=== PATIENT | male | born 1955 | race Caucasian/White ===

== ENCOUNTER 2023-01-16 09:38 | Day surgery (SDC) | payer MEDICARE, OTHER ==
[~2023-01-16 09:38] MED LIST: Acetaminophen 325 MG Tab PO SCH; Dexamethasone 4 MG/ML 5 ML MDV ONE; Dexmedetomidine 200 MCG/2 ML SDV ONE; Lidocaine 1% 5 ML VIAL ONE; Midazolam 1 MG/ML 2 ML SDV ONE; Ondansetron 4 MG/2 ML SDV ONE; Pantoprazole 40 MG Tab.CR PO SCH; Propofol 200 MG/20 ML SDV ONE; Sodium Chloride 0.9% 10 ML Syringe FLUSH PRN; Sodium Chloride 0.9% 10 ML Syringe FLUSH SCH; ceFAZolin 2 GM Vial ONE
[2023-01-16] MEDS ORDERED: fentaNYL 250 MCG/5 ML SDV ONE (09:54)
[2023-01-16] MEDS ORDERED: Ondansetron 4 MG/2 ML SDV ONE (09:55)
[2023-01-16] MEDS: Lactated Ringers 1,000 ML IV SCH ×2 (09:55→11:47)
[2023-01-16] MEDS ORDERED: Succinylcholine 200 MG/10 ML MDV ONE (09:55)
[2023-01-16] MEDS ORDERED: Lidocaine 1% 6 ML ONE (10:01)
[2023-01-16] MEDS ORDERED: EPINEPHrine 1 MG/ML SDV ONE (10:39)
[2023-01-16] MEDS ORDERED: Bupivacaine 0.5% 30 ML SDV ONE (10:40)
[2023-01-16] MEDS ORDERED: Lidocaine 1% 30 ML SDV ONE (10:40)
[2023-01-16] MEDS ORDERED: Ketorolac 30 MG/ML SDV ONE (12:15)
[2023-01-16] MEDS ORDERED: ePHEDrine 50 MG/ML SDV ONE (12:26)
[2023-01-16] MEDS ORDERED: fentaNYL 100 MCG/2 ML SDV ONE (12:44)
[2023-01-16] MEDS ORDERED: HYDROmorphone 0.5 MG/0.5 ML Syringe IVPUSH PRN (12:44)
[2023-01-16] MEDS ORDERED: fentaNYL 100 MCG/2 ML SDV IVPUSH PRN (12:44)
[2023-01-16] MEDS ORDERED: Neostigmine Methylsulfate 10 MG/10 ML MDV ONE (12:57)
[2023-01-16] MEDS ORDERED: Acetaminophen/oxyCODONE 325-5 MG Tab PO PRN (15:02)
== END 2023-01-16 17:10 | disposition home or self-care (01) ==
LOC: JD.SDS 09:38
PROVIDERS: ATTEND Surgery
DX: K40.20 Bilateral inguinal hernia, without obstruction or gangrene, not specified as recurrent (principal); E11.9 Type 2 diabetes mellitus without complications; I10 Essential (primary) hypertension; K83.1 Obstruction of bile duct; G47.33 Obstructive sleep apnea (adult) (pediatric); Z79.4 Long term (current) use of insulin; Z79.82 Long term (current) use of aspirin; Z79.84 Long term (current) use of oral hypoglycemic drugs; Z79.899 Other long term (current) drug therapy
CPT/HCPCS: 49650; A9270; C1727; C1781; J0171; J0330; J0690; J1100; J1885; J2250; J2405; J2704; J2710; J3010; J3490; J7120

== ENCOUNTER 2023-05-15 07:12 | Day surgery (SDC) | payer MEDICARE, OTHER ==
[2023-05-15] MEDS: Lactated Ringers 1,000 ML IV SCH (07:45)
[2023-05-15] MEDS ORDERED: Lidocaine 2% 5 ML SDV ONE (08:04)
[2023-05-15] MEDS ORDERED: Propofol 200 MG/20 ML SDV ONE ×2 (08:04→09:05)
[2023-05-15] MEDS: Bupivacaine 0.5% 10 ML SDV ONE (09:40)
== END 2023-05-15 10:55 | disposition home or self-care (01) ==
LOC: JD.SDS 07:12
PROVIDERS: ATTEND Surgery
DX: D12.3 Benign neoplasm of transverse colon (principal); D12.5 Benign neoplasm of sigmoid colon; K63.5 Polyp of colon; E78.5 Hyperlipidemia, unspecified; K64.9 Unspecified hemorrhoids; K57.30 Diverticulosis of large intestine without perforation or abscess without bleeding; K44.9 Diaphragmatic hernia without obstruction or gangrene; G47.30 Sleep apnea, unspecified; R13.10 Dysphagia, unspecified
CPT/HCPCS: 43239; 45380; J0665; J2704; J7120; 00813; J3490